=== PATIENT | male | born 1990 ===

== ENCOUNTER 2017-12-21 18:56 | Emergency (ER) | payer MEDICAID, OTHER ==
[2017-12-21] MEDS ORDERED: HYDROmorphone 1 MG/ML Syringe IVPUSH ONE (19:15)
[2017-12-21] MEDS ORDERED: Ondansetron 4 MG/2 ML SDV IV ONE (19:42)
[2017-12-21] MEDS ORDERED: fentaNYL 100 MCG/2 ML SDV IVPUSH ONE ×2 (19:42→20:31)
[2017-12-21 19:55] LABS: SODIUM,NA 137 mmol/L (135-145)
[2017-12-21 19:57] LABS: CHLORIDE,CL 103 mmol/L (101-111)
[2017-12-21 19:59] VITALS: BP 82/63
[2017-12-21] MEDS ORDERED: Lactated Ringers 1,000 ML IV ONE ×2 (20:04→20:47)
[2017-12-21] MEDS ORDERED: Sodium Chloride 0.9% 1,000 ML IV ONE (20:06)
[2017-12-21] MEDS ORDERED: Diphtheria,Pertussis(Acell),Tetanus Vaccine 0.5 ML SDV IM ONE (20:07)
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
== END 2017-12-21 21:52 ==
LOC: DL.ED 18:56
DX: T33.831A Superficial frostbite of right toe(s), initial encounter (principal); T33.832A Superficial frostbite of left toe(s), initial encounter; S91.312A Laceration without foreign body, left foot, initial encounter; S91.311A Laceration without foreign body, right foot, initial encounter; T68.XXXA Hypothermia, initial encounter; X31.XXXA Exposure to excessive natural cold, initial encounter
CPT/HCPCS: 36415; 80053; 80305; 81001; 82550; 85025; 86140; 90471; 90715; 96361; 96374; 96375; 96376; 99285; G0480; J1170; J2405; J3010; J7120

== ENCOUNTER 2025-05-04 10:35 | Emergency (ER) | payer MEDICAID ==
[2025-05-04] MEDS: Ketorolac 30 MG/ML SDV IVPUSH ONE (11:10)
[2025-05-04] MEDS: Ondansetron 4 MG/2 ML SDV IVPUSH ONE (11:10)
[2025-05-04 11:11] LABS: APPEARANCE,URINE CLEAR (CLEAR); BILIRUBIN,URINE LARGE (NEGATIVE); COLOR,URINE DARK YELLOW (YELLOW); GLUCOSE,URINE NEGATIVE (NEGATIVE); KETONES,URINE NEGATIVE (NEGATIVE); LEUKOCYTE ESTERASE,URINE NEGATIVE (NEGATIVE); NITRITE,URINE NEGATIVE (NEGATIVE); OCCULT BLOOD,URINE NEGATIVE (NEGATIVE); PROTEIN,URINE NEGATIVE (NEGATIVE); UROBILINOGEN,URINE 0.2 mg/dL (0.2-1.0)
[2025-05-04 11:12] LABS: BASOPHILS PERCENT AUTO 0.7 % (0.0-1.0); EOSINOPHILS PERCENT AUTO 1.4 % (1.0-3.0); HEMATOCRIT 42.1 % (40.0-54.0); HEMOGLOBIN 14.4 g/dL (14.0-18.0); LYMPHOCYTES PERCENT AUTO 15.5 % (20.5-50.1); MEAN CORPUSCULAR HEMOGLOBIN 29.6 pg (27.0-34.0); MEAN CORPUSCULAR HGB CONC 34.2 g/dL (33.0-35.0); MEAN CORPUSCULAR VOLUME 86.4 fL (80-100); MONOCYTES PERCENT AUTO 9.7 % (2-8); NEUTROPHILS PERCENT AUTO 72.7 % (42.2-75.2); PLATELET COUNT,PLT 237 10^3/uL (150-450); RED BLOOD CELL COUNT 4.87 10^6/uL (4.6-6.2); WHITE BLOOD CELL COUNT,WBC 5.6 10^3/uL (5.0-10.0)
[2025-05-04 11:30] LABS: A/G RATIO 1.09; ALANINE AMINOTRANSFERASE,ALT 373 U/L (16-63); ALBUMIN 3.8 g/dL (3.4-5.0); ALKALINE PHOSPHATASE 276 U/L (46-116); ANION GAP 9.6 mEq/L (7-13); ASPARTATE AMNIOTRANSFERASE,AST 171 U/L (15-37); BILIRUBIN TOTAL 5.6 mg/dL (0.2-1.0); BLOOD UREA NITROGEN,BUN 12 mg/dL (7-18); BUN/CREATININE RATIO 12.1 (No establ ref range); CALCIUM 9.2 mg/dL (8.5-10.1); CARBON DIOXIDE,CO2 28 mmol/L (21-32); CHLORIDE,CL 106 mmol/L (98-107); CREATININE 0.99 mg/dL (0.70-1.30); EST CRCL DRUG DOSING (CG) 104.15 mL/min; GLUCOSE RANDOM 97 mg/dL (70-99); POTASSIUM,K 4.6 mmol/L (3.5-5.1); PROTEIN TOTAL,TP 7.3 g/dL (6.4-8.2); SODIUM,NA 139 mmol/L (136-145)
[2025-05-04] MEDS: Iopamidol 755 Mg/ML 100 ML Bottle IVPUSH ONE (11:31)
[2025-05-04 11:40] LABS: ESTIMATED GFR 103 mL/min (>=60)
[2025-05-04 11:41] LABS: LIPASE > 250 U/L (16-77)
[2025-05-04] MEDS: cefTRIAXone 2 GM Vial IVPUSH ONE (12:06)
[2025-05-04 12:23] VITALS: BP 125/109; PULSE 53
[2025-05-04] MEDS ORDERED: Naloxone 2 MG/2 ML Syringe IVPUSH PRN (13:53)
[2025-05-04] MEDS: HYDROmorphone 1 MG/ML Syringe IVPUSH ONE (13:57)
== END 2025-05-04 13:58 ==
LOC: DL.ED 10:35
DX: K85.10 Biliary acute pancreatitis without necrosis or infection (principal)
CPT/HCPCS: 36415; 74177; 80053; 81003; 83690; 85025; 96374; 96375; 99285; J0696; J1171; J1885; J2405; Q9967